=== PATIENT | male | born 1965 | race African-American/Black ===

== ENCOUNTER 2022-01-21 19:35 | Emergency (ER) | payer OTHER ==
[2022-01-21 20:05] LABS: White Blood Cell (WBC) Count 4.1 thou/uL (4.8-10.8)
[2022-01-21 20:06] LABS: %Neutrophils 42.5 % (42.0-75.0); Hemoglobin 4.3 g/dL (14.0-18.0); Manual Diff?? NO; Mean Corpuscular HGB CONC 25.3 g/dL (32.0-36.0); Mean Corpuscular Hemoglobin 13.9 pg (27.0-31.0); Mean Platelet Volume 6.9 fL (7.4-10.4); Platelet Count 313 thou/uL (130-400); RBC Distribution Width 15.3 % (11.5-14.5); Red Blood Cell (RBC) Count 3.08 mill/uL (4.70-6.10)
[2022-01-21 20:07] LABS: #Basophils 0.1 thou/uL (0.0-0.2); #Eosinphils 0.2 thou/uL (0.0-0.7); #Lymphocytes 1.6 thou/uL (1.20-3.40); #Monocytes 0.5 thou/uL (0.11-0.59); #Neutrophils 1.7 thou/uL (1.40-6.50); %Basophils 2.9 % (0.0-1.0); %Eosinophils 4.1 % (0.0-10.0); %Lymphocytes 38.6 % (21.0-51.0); %Monocytes 11.8 % (0.0-10.0); ALT (SGPT) 9 U/L (8-55); AST (SGOT) 16 U/L (5-34); Albumin 3.8 g/dL (3.5-5.0); Alkaline Phosphatase 55 U/L (40-110); Anion Gap 15 mmol/L (10-20); BUN (Urea Nitrogen) 8 mg/dL (8.4-25.7); Bilirubin, Total 0.5 mg/dL (0.2-1.2); Calc. Creatinine Clearance 0 mL/min (70-130); Calcium 8.8 mg/dL (7.8-10.44); Carbon Dioxide 22 mmol/L (22-29); Chloride 109 mmol/L (98-107); Estimated GFR 100; Globulin 3.8 g/dL (2.4-3.5); Glucose 89 mg/dL (70-105); Protein, Total 7.6 g/dL (6.0-8.3); Sodium 142 mmol/L (136-145)
[2022-01-21 20:21] LABS: INR-International Normal Ratio 1.2; Prothrombin Time 15.6 sec (12.0-14.7)
[2022-01-21] MEDS ORDERED: Pantoprazole 40 MG VIAL ONE ×2 (20:27)
[2022-01-21 20:48] LABS: PTT 33.6 sec (22.9-36.1)
[2022-01-21 21:06] LABS: SARS-CoV-2 NAA Rapid Test Not Detected (NotDetected)
[2022-01-22 11:21] LABS: Reticulocyte Count 0.9 % (0.5-1.5)
[2022-01-22 11:44] LABS: Ferritin Less than 2.00 ng/mL (22-322); Vitamin B12 261 pg/mL (211-911)
== END 2022-01-22 00:46 | disposition short-term general hospital (02) ==
LOC: NAV ERS 19:35
DX: D64.9 Anemia, unspecified (principal); Z20.822 Contact with and (suspected) exposure to COVID-19
CPT/HCPCS: 36430; 80053; 82274; 82607; 82728; 82746; 83550; 83880; 84443; 84484; 85025; 85046; 85610; 85730; 86850; 86900; 86901; 93005; 96374; C9113; P9016; U0002